=== PATIENT | male | born 1955 | race Caucasian/White ===

== ENCOUNTER 2016-07-19 18:58 | Emergency (ER) | payer BC ==
[~2016-07-19] VITALS: Ht 182.9 cm; Wt 88.6 kg
[~2016-07-19 18:58] MED LIST: ASPIRIN325 MG PO; CLARITIN10 MG PO; MIRALAX, GLYCOL1 PKT PO; WELCHOL625 MG PO
[2016-07-19 20:13] LABS: HEMATOCRIT 43.2 % (38.0-50.0); MCH 32.1 PG (29.0-34.0); MCHC 34.7 G/DL (30.0-36.0); MCV 92.5 FL (86-99); MEAN PLAT.VOLUME 10.9 uM^3 (9.0-12.4); PLATELET COUNT 199 K/uL (156-360); RBC DIS.WIDTH-CV 12.7 % (11.8-14.6); RBC DIS.WIDTH-SD 41.3 % (39-53); RED BLOOD COUNT 4.67 M/uL (4.00-5.50); WHITE BLOOD COUNT 6.1 K/uL (4.1-10.2)
[2016-07-19 20:26] LABS: CHLORIDE 109 mEq/L (99-109)
[2016-07-19 20:27] LABS: SODIUM 142 mEq/L (136-147)
[2016-07-19 20:28] LABS: GLUCOSE 96 mg/dL (70-99)
[2016-07-19 20:30] LABS: ANION GAP 9 MEQ/L (2-14)
[2016-07-19 20:32] LABS: GFR ESTIMATE (CALCULATED) > 59 mL/min/
[2016-07-19 20:33] LABS: UREA NITROGEN (BUN) 16 mg/dL (9-23)
[2016-07-19 20:36] LABS: TROP-I INTERPRETATION NEGATIVE; TROPONIN-I < 0.01 ng/mL (0.0-0.30)
[2016-07-19 23:19] LABS: TROP-I INTERPRETATION NEGATIVE; TROPONIN-I < 0.01 ng/mL (0.0-0.30)
[2016-07-20 00:15] VITALS: BP 152/96
== END 2016-07-20 00:17 | disposition home or self-care (01) ==
LOC: EME 18:58
PROVIDERS: Emergency Medicine; Physician Assistant
DX: R07.9 Chest pain, unspecified (principal); I10 Essential (primary) hypertension; Z79.82 Long term (current) use of aspirin
CPT/HCPCS: 71020; 80048; 81003; 83735; 84443; 84484; 85027; 93005; 99281; 99285; J0360